=== PATIENT | female | born 2000 | race Two or more races ===

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

== ENCOUNTER 2019-02-07 18:22 | Emergency (ER) | payer OTHER ==
[2019-02-07] MEDS ORDERED: DEXAMETHASONE LIQUID 0.5 MG/5 ML 240 ML BULK BOTTLE PO ONE (18:28)
[2019-02-07] MEDS ORDERED: ACETAMINOPHEN 500 MG TABLET (FP) PO ONE (18:28)
--- NOTE | 2019-02-07 18:28 | PDOC ---
Rapid Medical Evaluation Time Seen by Provider: 02/07/19 18:25 Medical Evaluation: Allergies Allergy/AdvReac Type Severity Reaction Status Date / Time ibuprofen [From Motrin] Allergy Verified 12/02/18 16:15 02/07/19 18:25 I have performed a brief exam on this patient. CC: fever, vomiting, sore throat PE: OP- 2+ tonsils with erythema and exudate. Anterior cervical lymphadenopathy Orders: strep, decadron, tylenol The patient will proceed to the ER for further evaluation. Discharge Disposition - Diagnosis Pharyngitis - Referrals - Patient Instructions - Post Discharge Activity
[2019-02-07 18:29] VITALS: BP 99/80; PULSE 141; TEMP 100.6; BMI 37.0
[2019-02-07] MEDS ORDERED: DEXAMETHASONE SOD PHOSPHATE 10 MG/1 ML VIAL ONE (18:39)
[2019-02-07] MEDS ORDERED: ACETAMINOPHEN 650 MG/20.3 ML ORAL SOLUTION (CUPS) ONE (18:40)
--- NOTE | 2019-02-07 19:35 | PDOC ---
History of Present Illness - General Chief Complaint: Sore Throat Stated Complaint: HIGH FEVER Time Seen by Provider: 02/07/19 18:25 History Source: Patient Exam Limitations: No Limitations - History of Present Illness Initial Comments: 18 year old female with medical history of thyroid nodule and no significant surgical history presents with sore throat since yesterday. Patient reports pain and headache yesterday, also reports fever and chills. Used acetaminophen for fever with some relief. 19:41 02/07/19 19:41 Timing/Duration: 24 hours Severity: mild Modifying Factors: improves with: medication Associated Symptoms: reports: fever/chills, headaches, malaise. denies: cough Aspirin Received prior to arrival: Yes: no aspirin today Asa Contraindications(Core Measure): No: Allergy Beta Renuka Contraindications(Core Measure): Yes: Not Prescribed Beta Renuka Given by EMS(Core Measure): No Beta Renuka Taken at Home(Core Measure): No Beta Renuka Not Indicated at this Time(Core Measure): No Past History - Travel Traveled outside of the country in the last 30 days: No Close contact w/someone who was outside of country & ill: No - Past Medical History Allergies/Adverse Reactions: Allergies Allergy/AdvReac Type Severity Reaction Status Date / Time ibuprofen [From Motrin] Allergy Verified 02/07/19 18:29 Home Medications: Ambulatory Orders Acetaminophen 500 mg PO QID #20 tablet 02/07/19 Penicillin V Potassium [Pen Vee K -] 500 mg PO TID #30 tablet 02/07/19 COPD: No Thyroid Disease: Yes - Suicide/Smoking/Psychosocial Hx Smoking History: Never smoked Have you smoked in the past 12 months: No Information on smoking cessation initiated: No Hx Alcohol Use: No Drug/Substance Use Hx: No Substance Use Type: None Hx Substance Use Treatment: No Review of Systems - Review of Systems Able to Perform ROS?: Yes Is the patient limited Mongolian proficient: No Constitutional: Yes: Fever, Malaise. No: Chills HEENTM: Yes: Throat Pain, Difficulty Swallowing Respiratory: No: Cough, Shortness of Breath, Productive cough Cardiac (ROS): No: Chest Pain, Edema, Lightheadedness ABD/GI: No: Constipated, Nausea, Poor Appetite, Vomiting Integumentary: No: Bruising, Erythema Neurological: Yes: Headache *Physical Exam - Vital Signs Last Vital Signs Temp Pulse Resp BP Pulse Ox 100.6 F H 141 H 18 99/80 100 02/07/19 18:27 02/07/19 18:27 02/07/19 18:27 02/07/19 18:27 02/07/19 18:27 - Physical Exam General Appearance: Yes: Nourished, Appropriately Dressed HEENT: positive: EOMI, CHERYL, Pharyngeal Erythema, Tonsillar Exudate, Tonsillar Erythema Neck: positive: Supple. negative: Lymphadenopathy (R), Lymphadenopathy (L) Respiratory/Chest: positive: Chest Tender, Lungs Clear Cardiovascular: positive: Regular Rhythm, Regular Rate Neurologic: positive: feltmaker and weigher II-XII NML intact, Fully Oriented ED Treatment Course - Medications Given in the ED: ED Medications Discontinued Medications Generic Name Dose Route Start Last Admin Trade Name Shannan PRN Reason Stop Dose Admin Acetaminophen 975 mg 02/07/19 18:28 02/07/19 18:37 Tylenol - PO 02/07/19 18:29 975 mg ONCE ONE Administration Dexamethasone 10 mg 02/07/19 18:28 02/07/19 18:37 Decadron Liquid - PO 02/07/19 18:29 10 mg ONCE ONE Administration Medical Decision Making - Medical Decision Making 02/07/19 21:53 18 year old female with medical history of thyroid nodule and no significant surgical history presents with sore throat since yesterday. pharyngitis rapid strep ibuprofen reassess: rapid strep negative throat culture sent due to erythematous tonsils with exudate rx: penvk antipyretic/analgesia refer to f/u with pmd *DC/Admit/Observation/Transfer Diagnosis at time of Disposition: Pharyngitis Qualifiers: Pharyngitis/tonsillitis etiology: other specified organisms Qualified Code(s): J02.8 - Acute pharyngitis due to other specified organisms - Discharge Dispostion Disposition: HOME Condition at time of disposition: Good Decision to Admit order: No - Prescriptions Prescriptions: Acetaminophen 500 mg PO QID #20 tablet Penicillin V Potassium [Pen Vee K -] 500 mg PO TID #30 tablet - Referrals Referrals: Landon Carlos MD [Staff Physician] - 2 Days - Patient Instructions Printed Discharge Instructions: Sore Throat Additional Instructions: Please gargle with warm salt water Use acetaminophen for fever and chills Take medication until complete Do not share utensil or kiss others as sore throats are highly contagious - Post Discharge Activity Forms/Work/School Notes: Back to Work
== END 2019-02-07 19:44 | disposition home or self-care (01) ==
LOC: JERFT 18:22
DX: J02.8 Acute pharyngitis due to other specified organisms (principal); E07.9 Disorder of thyroid, unspecified
CPT/HCPCS: 87070; 87077; 87880; 99282-25

== ENCOUNTER 2019-06-16 12:01 | Emergency (ER) | payer OTHER ==
[2019-06-16 12:14] VITALS: BP 117/54; PULSE 84; TEMP 98.7; BMI 34.2
--- NOTE | 2019-06-16 13:34 | PDOC ---
History of Present Illness - General Chief Complaint: Pain Stated Complaint: TONGUE INFECTION Time Seen by Provider: 06/16/19 12:22 History Source: Patient Exam Limitations: No Limitations Past History - Travel Traveled outside of the country in the last 30 days: No Close contact w/someone who was outside of country & ill: No - Past Medical History Allergies/Adverse Reactions: Allergies Allergy/AdvReac Type Severity Reaction Status Date / Time ibuprofen [From Motrin] Allergy Verified 06/16/19 12:14 Home Medications: Ambulatory Orders Acetaminophen 500 mg PO QID #20 tablet 02/07/19 Penicillin V Potassium [Pen Vee K -] 500 mg PO TID #30 tablet 02/07/19 COPD: No Thyroid Disease: Yes - Psycho Social/Smoking Cessation Hx Smoking History: Never smoked Have you smoked in the past 12 months: No Hx Alcohol Use: No Drug/Substance Use Hx: No Substance Use Type: None Hx Substance Use Treatment: No Review of Systems - Review of Systems Able to Perform ROS?: Yes Comments:: 06/16/19 13:29 CONSTITUTIONAL: Absent: fever, chills, diaphoresis, generalized weakness, malaise, loss of appetite HEENT: Present: Tongue swelling absent: rhinorrhea, nasal congestion, throat pain, throat swelling, difficulty swallowing, mouth swelling, ear pain, eye pain, visual Changes SKIN: Absent: rash, itching, pallor NEUROLOGIC: Absent: headache, focal weakness or paresthesias, dizziness, unsteady gait, seizure, mental status changes, bladder or bowel incontinence PSYCHIATRIC: Absent: anxiety, depression, suicidal or homicidal ideation, hallucinations. Is the patient limited Bulgarian proficient: No *Physical Exam - Vital Signs Last Vital Signs Temp Pulse Resp BP Pulse Ox 98.7 F 84 16 117/54 L 100 06/16/19 12:06 06/16/19 12:06 06/16/19 12:06 06/16/19 12:06 06/16/19 12:06 - Physical Exam 06/16/19 13:32 GENERAL: The patient is awake, alert, and fully oriented, in no acute distress. HEAD: Normal with no signs of trauma. EYES: Pupils equal, round and reactive to light, extraocular movements intact, sclera anicteric, conjunctiva clear. EXTREMITIES: Normal range of motion, no edema. NEUROLOGICAL: Normal speech, normal gait. PSYCH: Normal mood, normal affect. SKIN: Swelling and redness to the tip of the tongue. A bar piercing is in place at the tip of the tongue. warm, Dry, normal turgor, no rashes or lesions noted. Medical Decision Making - Medical Decision Making 06/16/19 13:33 The patient is a 18-year-old female no past medical history presents the ER complaining of tongue redness and swelling. She states she got a piercing in her tongue 1 month ago. She notes that approximately 1 week ago it started to get painful and started to swell. She has not taken the piercing out yet. Denies fevers, chills, sore throat, difficulty swallowing. A/P: Cellulitis On exam patient with redness the tip of her tongue which is surrounding the bar piercing Most likely a cellulitis secondary to piercing Advised patient to take out the piercing. She states she needs to go back to the [facility] to have them unscrew the balls. She states she will do that today. We will start on Augmentin Discharge home I discussed the physical exam findings, ancillary test results and final diagnoses with the patient. I answered all of the patient's questions. The patient was satisfied with the care received and felt comfortable with the discharge plan and treatment plan. The Patient agrees to follow up with the primary care physician/specialist within 24-72 hours. Return precautions were given. Discharge - Discharge Information Problems reviewed: Yes Clinical Impression/Diagnosis: Tongue infection Condition: Stable Disposition: HOME - Admission No - Follow up/Referral Referrals: Justina Fam NP [Primary Care Provider] - - Patient Discharge Instructions Patient Printed Discharge Instructions: DI for Cellulitis -- Adult Additional Instructions: Your evaluated for your tongue infection. Is most likely a secondary skin infection from the piercing Please remove the piercing as soon as possible. Please take the Augmentin twice a day for 1 week to help with the infection You may use warm water salt gargles Follow-up with your primary care provider this week. Return to the ER for any new or worsening symptoms - Post Discharge Activity Work/Back to School Note: Back to Work
== END 2019-06-16 14:08 | disposition home or self-care (01) ==
LOC: JERFT 12:01
DX: K14.0 Glossitis (principal); E07.9 Disorder of thyroid, unspecified; Z88.8 Allergy status to other drugs, medicaments and biological substances
CPT/HCPCS: 99281-25

== ENCOUNTER 2020-11-22 14:55 | Emergency (ER) | payer OTHER ==
[2020-11-22 15:04] VITALS: BMI 37.5
[2020-11-22] MEDS ORDERED: SODIUM CHLORIDE 1,000 ML IV STA (15:49)
[2020-11-22 16:20] LABS: EPI CELLS >36 /uL (0-25.1); HYALINE CASTS 7 /uL (0-3.1); PH,URINE 5.5 (5.0-8.0); URINE APPEARANCE TURBID; URINE BACTERIA 4897 /uL (0-1359); URINE BILIRUBIN NEGATIVE (NEGATIVE); URINE COLOR YELLOW; URINE GLUCOSE (UA) NEGATIVE (NEGATIVE); URINE KETONE NEGATIVE (NEGATIVE); URINE LEUK ESTERASE NEGATIVE (NEGATIVE); URINE NITRITE NEGATIVE (NEGATIVE); URINE PROTEIN NEGATIVE (NEGATIVE); URINE UROBILINOGEN 0.2 mg/dL (0.2-1.0); URINE WBC 45 /uL (0-25.8)
[2020-11-22 16:27] LABS: BASO % 0.2 % (0-2.0); EOS % 2.6 % (0-4.5); HEMATOCRIT 33.2 % (32.4-45.2); HEMOGLOBIN 10.7 GM/dL (10.7-15.3); LYMPH % 20.1 % (8-40); MCH 25.2 pg (25.7-33.7); MCHC 32.1 g/dl (32.0-36.0); MEAN CELL VOLUME 78.4 fl (80-96); MEAN PLT VOLUME 7.5 fl (7.5-11.1); MONO % 3.6 % (3.8-10.2); NEUT % 73.5 % (42.8-82.8); PLATELET COUNT 381 K/MM3 (134-434); RBC 4.23 M/mm3 (3.60-5.2); RDW 17.3 % (11.6-15.6); WHITE BLOOD COUNT 9.1 K/mm3 (4.0-10.0)
[2020-11-22 16:47] LABS: ALBUMIN 3.7 g/dl (3.4-5.0); BLOOD UREA NITROGEN 8.3 mg/dL (7-18); CALCIUM 8.9 mg/dL (8.5-10.1); MAGNESIUM 2.3 mg/dL (1.8-2.4)
[2020-11-22 16:50] LABS: CREATININE 0.6 mg/dL (0.55-1.3)
[2020-11-22 16:51] LABS: PHOSPHOROUS 2.6 mg/dL (2.5-4.9)
[2020-11-22 16:52] LABS: BILIRUBIN,TOTAL 0.2 mg/dL (0.2-1); TOT PROT 7.4 g/dl (6.4-8.2)
[2020-11-22] MEDS ORDERED: ZONISAMIDE 25 MG CAPSULE PO STA (17:16)
[2020-11-22 17:43] VITALS: BP 105/66
[2020-11-22 18:08] VITALS: PULSE 77; TEMP 98.5
[2020-11-22 21:16] LABS: URINE RBC 56.5 /uL (0-23.9)
== END 2020-11-22 18:12 | disposition home or self-care (01) ==
LOC: JER 14:55
PROC: 3E0337Z Introduction of Electrolytic and Water Balance Substance into Peripheral Vein, Percutaneous Approach (ICD-10-PCS; principal; 2020-11-22)
DX: R56.9 Unspecified convulsions (principal); E04.1 Nontoxic single thyroid nodule
CPT/HCPCS: 36415; 70450-TC; 80053; 81003; 83735; 84100; 84439; 84443; 84703; 85025; 87086; 93005; 93010; 96360; 99285-25

== ENCOUNTER 2023-12-25 21:57 | Emergency (ER) | payer OTHER ==
[2023-12-25 22:05] VITALS: BP 124/75; PULSE 81; RESP 18; TEMP 99.1; BMI 34.7
[2023-12-25 23:06] LABS: THROAT:GRP A STREP NOT DETECTED (NOTDETECTED)
[2023-12-25] MEDS ORDERED: ACETAMINOPHEN 500 MG TABLET (FP) ONE (23:48)
[2023-12-25] MEDS ORDERED: predniSONE 20 MG TABLET (UD) ONE (23:48)
[2023-12-25] MEDS: predniSONE 20 MG TABLET (UD) PO ONE (23:54)
[2023-12-25] MEDS: ACETAMINOPHEN 500 MG TABLET (FP) PO ONE (23:54)
== END 2023-12-25 23:56 | disposition home or self-care (01) ==
LOC: JERFT 21:57
DX: J32.9 Chronic sinusitis, unspecified (principal); H10.9 Unspecified conjunctivitis; J02.9 Acute pharyngitis, unspecified; Z20.822 Contact with and (suspected) exposure to COVID-19
CPT/HCPCS: 0241U-QW; 87651; 99283-25